=== PATIENT | female | born 1980 | race Two or more races ===

== ENCOUNTER 2020-02-13 07:38 | Inpatient (IN) | payer MEDICAID ==
[~2020-02-13] VITALS: Ht 162.6 cm; Wt 108.9 kg
--- NOTE | 2020-02-13 07:55 | NUR ---
ED Nurse Note: Pt walked in from home c/o RLQ pain with n/v x 2 weeks. Per pt, she had appendectomy 2 weeks ago. Respirations even and unlabored on room air. Vitals stable as documented. .
[2020-02-13] MEDS ORDERED: Omnipaque-300 100ml vial INJ PRN (08:00)
[2020-02-13 08:10] VITALS: BP 112/78
[2020-02-13] MEDS ORDERED: Morphine Sulfate 4mg/ml Inj (IV USE ONLY) IVP ONE ×2 (08:15→11:15)
--- NOTE | 2020-02-13 08:37 | NUR ---
ED Nurse Note: Cannot get IV access and blood draw. ED MD aware and said okay to insert on foot/leg if necessary.
[2020-02-13 08:51] LABS: APPEARANCE,URINE CLEAR; BILIRUBIN, URINE NEGATIVE (NEGATIVE); GLUCOSE, URINE (UA) NEGATIVE (NEGATIVE); KETONES,URINE 1+ (NEGATIVE); LEUKOCYTE ESTERASE ,URINE NEGATIVE (NEGATIVE); NITRITE,URINE NEGATIVE (NEGATIVE); PH,URINE 5 (4.5-8.0); PROTEIN,URINE 1+ (NEGATIVE); UROBILINOGEN,URINE NORMAL MG/DL (0.0-1.0)
[2020-02-13 08:54] LABS: COLOR,URINE YELLOW
--- NOTE | 2020-02-13 08:58 | Emergency Room Report ---
History of Present Illness General Chief Complaint: Abdominal Pain Source: Patient Present Illness HPI This patient states that she underwent appendectomy 2 weeks ago. She states she was traveling to [place] at the time. She underwent a CT scan and was told she had a ruptured appendix. She did still go to the operating room and underwent appendectomy. She has been taking Zofran and Sinclair. She states that she has had ongoing severe pain in her right lower quadrant at the site of the surgery. She denies fever, although, she has had an episode of chills last night. She has had nausea and vomiting. She has pain localized to the right lower abdomen at the location of the surgical site. She has had no drainage or changes in her laparoscopy incision sites. She denies dysuria or hematuria. She has been having normal and soft bowel movements. She denies diarrhea. She denies headache or neck pain. She denies chest pain or shortness of breath. She states that 3 months ago she suffered a CVA. She states she is in full work -up for the etiology of this under the care of a neurologist. She has no other complaints. 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 COVID-19 Screening: Negative COVID-19 COVID-19 Testing Source: [place] Patient History Past Medical History: see triage record, CVA/TIA Past Surgical History: appy, jigna, other - Open lap for ovarian torsion as a child, Tubal ligation Social History: Denies: smoking, alcohol use, drug use Reviewed Nursing Documentation: PMH: Agreed; PSxH: Agreed Nursing Documentation-PMH Past Medical History: No History, Except For Hx Cerebrovascular Accident: Yes - left side Review of Systems All Other Systems: negative except mentioned in HPI Physical Exam Vital Signs Date Time Temp Pulse Resp B/P (MAP) Pulse Ox O2 Delivery O2 Flow Rate FiO2 02/13/20 07:47 98.4 97 20 108/76 (87) 97 02/13/20 08:10 Room Air Sp02 EP Interpretation: reviewed, normal General Appearance: no apparent distress, alert, GCS 15, non-toxic Head: normocephalic, atraumatic Eyes: bilateral eye normal inspection, bilateral eye PERRL ENT: hearing grossly normal, normal pharynx, no angioedema, normal voice Neck: full range of motion, supple/symm/no masses Respiratory: chest non-tender, lungs clear, normal breath sounds, no respiratory distress, no retraction, no accessory muscle use, speaking full sentences Cardiovascular #1: regular rate, rhythm, no edema Gastrointestinal: normal bowel sounds, soft, non-distended, no guarding, no rebound, tenderness - TTP in the the Abdomen diffusely, RLQ greatest tenderness. Surgical incision sites healing well (approximated, normal skin, no erythema or discharge). Rectal: deferred Musculoskeletal: back normal, normal range of motion, gait/station normal, non- tender Neurologic: alert, oriented x3, responsive, speech normal, other - Hx of CVA w / Facial droop, L. sided weakness (At baseline per patient) Psychiatric: judgement/insight normal, memory normal, mood/affect normal, no suicidal/homicidal ideation Skin: no rash, normal color Medical Decision Making Diagnostic Impression: Primary Impression: Uncontrolled pain Additional Impression: Post-operative pain ER Course This patient underwent CT of the abdomen and pelvis given that she is 2 weeks postoperative from a appendectomy. CT of the abdomen and pelvis showed no acute findings. She seems to have a very high tolerance for pain medication. She required escalating doses of morphine and continue to state her pain was uncontrolled. Laboratory work-up was benign. I was unable to safely control this patient's pain and discharge her home. I am unsure why she is requiring such high doses of pain medication. Possibly she does have narcotic tolerance. I did plan on obtaining a pelvic ultrasound, however, the patient declined the ultrasound saying that would only cause her more discomfort. Regardless, the patient is admitted for further evaluation by general surgery and for pain control as I have been unable to control her pain in the emergency department. Laboratory Tests Test 02/13/20 08:00 02/13/20 08:43 Urine Color Yellow Urine Appearance Clear Urine pH 5 (4.5-8.0) Urine Specific [place] 1.030 (1.005-1.035) Urine Protein 1+ (NEGATIVE) H Urine Glucose (UA) Negative (NEGATIVE) Urine Ketones 1+ (NEGATIVE) H Urine Blood Negative (NEGATIVE) Urine Nitrite Negative (NEGATIVE) Urine Bilirubin Negative (NEGATIVE) Urine Urobilinogen Normal MG/DL (0.0-1.0) Urine Leukocyte Esterase Negative (NEGATIVE) Urine RBC 0 /HPF (0 - 2) Urine WBC 0-2 /HPF (0 - 2) Urine Squamous Epithelial Cells Few /LPF (NONE/OCC) Urine Bacteria Occasional /HPF (NONE) Urine Mucus Moderate /LPF (NONE/OCC) H Urine HCG, Qualitative Negative (NEGATIVE) White Blood Count 11.9 K/UL (4.8-10.8) H Red Blood Count 4.49 M/UL (4.20-5.40) Hemoglobin 12.5 G/DL (12.0-16.0) Hematocrit 37.6 % (37.0-47.0) Mean Corpuscular Volume 84 FL (80-99) Mean Corpuscular Hemoglobin 27.9 PG (27.0-31.0) Mean Corpuscular Hemoglobin Concent 33.3 G/DL (32.0-36.0) Red Cell Distribution Width 12.9 % (11.6-14.8) Platelet Count 378 K/UL (150-450) Mean Platelet Volume 5.7 FL (6.5-10.1) L Neutrophils (%) (Auto) % (45.0-75.0) Lymphocytes (%) (Auto) % (20.0-45.0) Monocytes (%) (Auto) % (1.0-10.0) Eosinophils (%) (Auto) % (0.0-3.0) Basophils (%) (Auto) % (0.0-2.0) Differential Total Cells Counted 100 Neutrophils % (Manual) 59 % (45-75) Lymphocytes % (Manual) 33 % (20-45) Monocytes % (Manual) 8 % (1-10) Eosinophils % (Manual) 0 % (0-3) Basophils % (Manual) 0 % (0-2) Band Neutrophils 0 % (0-8) Platelet Estimate Adequate Platelet Morphology Normal Red Blood Cell Morphology Normal Sodium Level 140 MMOL/L (136-145) Potassium Level 3.8 MMOL/L (3.5-5.1) Chloride Level 104 MMOL/L (98-107) Carbon Dioxide Level 27 MMOL/L (21-32) Anion Gap 9 mmol/L (5-15) Blood Urea Nitrogen 11 mg/dL (7-18) Creatinine 0.9 MG/DL (0.55-1.30) Estimated Glomerular Filtration Rate > 60 mL/min (>60) Glucose Level 118 MG/DL (74-106) H Calcium Level 8.6 MG/DL (8.5-10.1) Total Bilirubin 0.3 MG/DL (0.2-1.0) Aspartate Amino Transferase (AST) 27 U/L (15-37) Alanine Aminotransferase (ALT) 52 U/L (12-78) Alkaline Phosphatase 100 U/L (46-116) Total Protein 7.3 G/DL (6.4-8.2) Albumin 3.5 G/DL (3.4-5.0) Globulin 3.8 g/dL Albumin/Globulin Ratio 0.9 (1.0-2.7) L CT/MRI/US Diagnostic Results CT/MRI/US Diagnostic Results : Imaging Test Ordered: CT abd/pelvis Impression Impression: Evidence of prior appendectomy. No CT evidence of complications related to such or findings to explain stated clinical history of severe right lower quadrant pain. Evidence of prior cholecystectomy Pneumobilia, presumably indicates prior sphincterotomy resulting in gas reflux into the biliary tree. Correlate with clinical history Small lobulated Cassity within the right lower quadrant subcutaneous fat, presumably some early scarring or small hematoma related to prior laparotomy incision Last Vital Signs Date Time Temp Pulse Resp B/P (MAP) Pulse Ox O2 Delivery O2 Flow Rate FiO2 02/13/20 08:10 89 20 02/13/20 08:10 98.4 112/78 98 Room Air Disposition: ADMITTED INPATIENT Condition: Stable Scripts No Active Prescriptions or Reported Meds Kristin Lockett DO Feb 13, 2020 08:58
--- NOTE | 2020-02-13 09:00 | NUR ---
ED Nurse Note: Left foot IV inserted. ED MD aware.
[2020-02-13 09:03] LABS: HEMATOCRIT 37.6 % (37.0-47.0); HEMOGLOBIN 12.5 G/DL (12.0-16.0); MEAN CORPUSCULAR VOLUME 84 FL (80-99); PLATELET COUNT 378 K/UL (150-450); RED BLOOD COUNT 4.49 M/UL (4.20-5.40); RED CELL DISTRIBUTION WIDTH 12.9 % (11.6-14.8); WHITE BLOOD COUNT 11.9 K/UL (4.8-10.8)
--- NOTE | 2020-02-13 09:06 | NUR ---
ED Nurse Note: Pt given oral contrast and has begun drinking it.
[2020-02-13 09:08] LABS: ANION GAP 9 mmol/L (5-15); BLOOD UREA NITROGEN 11 mg/dL (7-18); CALCIUM 8.6 MG/DL (8.5-10.1); CARBON DIOXIDE 27 MMOL/L (21-32); CHLORIDE 104 MMOL/L (98-107); CREATININE 0.9 MG/DL (0.55-1.30); POTASSIUM 3.8 MMOL/L (3.5-5.1); SODIUM 140 MMOL/L (136-145)
[2020-02-13 09:13] LABS: ALANINE AMINOTRANSFERASE 52 U/L (12-78); ALBUMIN 3.5 G/DL (3.4-5.0); ALBUMIN/GLOBULIN RATIO 0.9 (1.0-2.7); ALKALINE PHOSPHATASE 100 U/L (46-116); ASPARTATE AMINO TRANSFERASE 27 U/L (15-37); BILIRUBIN,TOTAL 0.3 MG/DL (0.2-1.0)
[2020-02-13 09:48] VITALS: BP 119/82
--- NOTE | 2020-02-13 10:29 | NUR ---
ED Nurse Note: Pt in radiology
--- NOTE | 2020-02-13 10:50 | NUR ---
ED Nurse Note: pt back from radiology
--- NOTE | 2020-02-13 11:22 | Diagnostic Imaging Report ---
Indication: Abdominal pain. History of appendectomy 2 weeks ago. Ongoing severe right lower quadrant pain since Technique: Spiral acquisitions obtained through the abdomen and pelvis. Patient given oral contrast. No IV contrast utilized, per referring physician request.. Multiplanar reconstructions were generated. Total dose length product 1210 mGycm. CTDIvol(s) 21 mGy. Dose reduction achieved using automated exposure control Comparison: None Findings: The small bowel is well opacified. Ingested contrast reaches the distal ileum, does not quite traverse the terminal ileum. The appendix is not visualized and surgical chely are seen surrounding the cecum. Essentially no inflammatory change is seen in pericecal region. No extraluminal gas or fluid collections. A lobulated opacity in the right lower quadrant subcutaneous fat probably represents some early scarring immediately deep to the incision. Prominent nodes are seen in the right lower quadrant mesenteric fat. There are questionable small colonic diverticula. No evidence of diverticulitis. No small bowel distention or small bowel wall thickening. Distal esophagus, stomach, duodenum are unremarkable. No free or loculated intraperitoneal gas or fluid is evident. Lack of IV contrast limits assessment of the solid organs. The gallbladder has been removed. A small amount of gas is seen within the common hepatic duct and central left intrahepatic ducts. The liver is unremarkable otherwise. The pancreas, spleen, adrenals, kidneys are unremarkable. No retroperitoneal or mesenteric mass or adenopathy. No pelvic mass or adenopathy. Uterus and ovaries are unremarkable. The included lung bases are clear. The bones are unremarkable. Impression: Evidence of prior appendectomy. No CT evidence of complications related to such or findings to explain stated clinical history of severe right lower quadrant pain. Evidence of prior cholecystectomy Pneumobilia, presumably indicates prior sphincterotomy resulting in gas reflux into the biliary tree. Correlate with clinical history Small lobulated Cassity within the right lower quadrant subcutaneous fat, presumably some early scarring or small hematoma related to prior laparotomy incision The CT scanner at [facility] is accredited by the [employer] and the scans are performed using protocols designed to limit radiation exposure to as low as reasonably achievable to attain images of sufficient resolution adequate for diagnostic evaluation.
[2020-02-13 11:40] VITALS: BP 123/85
[2020-02-13] MEDS ORDERED: Morphine Sulfate 10mg/ml Inj IVP ONE (12:15)
[2020-02-13 13:30] VITALS: BP 117/81
--- NOTE | 2020-02-13 15:13 | NUR ---
ED Nurse Note: Report given to NESTOR Campos on 4 E.
--- NOTE | 2020-02-13 15:15 | NUR ---
NURSE NOTES: received report from ER. Caroline RN. patient will be admitted to room 416-[address] Jaime amezcua.
--- NOTE | 2020-02-13 15:40 | NUR ---
ED Nurse Note: Pt transferred safely to 4E.
--- NOTE | 2020-02-13 15:50 | NUR ---
NURSE NOTES: patient was admitted to room 402-2 under care dx of abd pain, n/v. A&Ox4, verbally responsive. no respiratory distress noted on room air. pain on abd area. she felt itchy after got morphine at ER. IV on Left foot 24g intact. checked and counted belongings with patient. ambulatory. notified Dr. Mitchell for admission orderes. MD is aware. will continue to provide plan of care.
--- NOTE | 2020-02-13 17:05 | NUR ---
NURSE NOTES: received order from Dr. roman. No ATB med for discharge. removed Picc line upon discharge. order noted and carried out.
[2020-02-13] MEDS ORDERED: D5 1/2NS 1,000 ML IV SCH (17:09)
[2020-02-13] MEDS ORDERED: Miralax 17gm pkt ORAL PRN (17:15)
[2020-02-13] MEDS ORDERED: Metoclopramide 10mg/2ml Inj IVP PRN (17:15)
[2020-02-13] MEDS ORDERED: Nitroglycerin Subl 0.4mg tab SL PRN (17:15)
[2020-02-13] MEDS ORDERED: DiphenhydrAMINE 25mg Tab ORAL PRN (17:15)
[2020-02-13] MEDS ORDERED: DiphenhydrAMINE 50mg/ml Inj IVP SCH (18:45)
--- NOTE | 2020-02-13 18:46 | NUR ---
NURSE NOTES: received call from CHASITY Larkin. covering DR. Sandoval. she will come to see the patient for evaluation in 10 min. received order Dilaudid 2mg IVP once stat for the pain. Benadryl 50mg IVP once Stat for itchiness. order noted and carried out.
--- NOTE | 2020-02-13 19:10 | NUR ---
NURSE NOTES: Received report from NESTOR Campos, The patient is alert and oriented x4 and was cooperative with her care. She has an IV line in the Left foot 24g that is presently running IV fluids D5 0.45 NS. She was noted to have slurred speech related to her history of CVA with left sided deficits noted. The was no complain of pain . will continue to monitor.
[2020-02-13 20:00] VITALS: BP 157/83
[2020-02-13] MEDS ORDERED: Heparin 5000 units/ml inj SUBQ SCH (21:00)
--- NOTE | 2020-02-13 21:10 | NUR ---
The patient called in and said her daughter had an Emergency that she need to leave the hospital immediately. The patient was educated on the risks for leaving without completing her treatment x3 but she persisted. Dr. Sandoval was informed and the patient was able to sign the AMA for herself.
--- NOTE | 2020-02-13 21:12 | NUR ---
The patient left the hospital is alert and oriented x4, the resp is even and unlabored and the IV lines on the left food was discontinued.
[2020-02-14] MEDS ORDERED: Pantoprazole Inj IV SCH (09:00)
--- NOTE | 2020-02-17 11:04 | Discharge Summary ---
Discharge Summary Discharge Summary _ DATE OF ADMISSION: 02/13/2020 DATE OF DISCHARGE: 02/13/2020 Patient left AGAINST MEDICAL ADVICE REASON FOR ADMISSION: 39 years old female, who underwent appendectomy 2 weeks ago, presented for abdominal pain. Apparently at that time prior to surgery, she she was traveling to [place] and developed abdominal pain. CT scan revealed a ruptured appendix. Patient undergone urgent appendectomy . Patient completed antibiotic . Patient was taking analgesic and antiemetic at home. Patient reported ongoing severe pain in the right lower quadrant at the site of the surgery. She denied fever , but reported episode of chills last night. She still had nausea and vomiting. Pain was localized at the right lower abdominal quadrant at the location of the surgical site , no radiation. No drainage. No change in laparoscopic incision sites. No chest pain or shortness of breath. No dysuria or hematuria. Normal bowel movement. No diarrhea. No headache or neck pain. Patient reported that 3 months ago she suffered a CVA. She had a full work-up and currently under care of neurologist. Upon evaluation vital signs were stable. Laboratory work-up revealed mild leukocytosis WBC 11.9, stable hemoglobin , hematocrit and platelet count. Stable electrolytes and renal parameters. Urinalysis revealed +1 protein , +1 ketones , no evidence of UTI. Urine test was negative. CT of the abdomen and pelvis demonstrated evidence of prior appendectomy. No CT evidence of complication related to such findings to explain history of severe right lower quadrant pain. Evidence of prior cholecystectomy. In emergency department patient started on the IV fluids, received analgesic, antiemetic and admitted to medical surgical floor for further management. HOSPITAL COURSE: Patient admitted to medical surgical floor. Patient was on IV fluids. Pain management was addressed. Antiemetic were on board as needed. Bowel regimen instituted. DVT and GI prophylaxis provided. Patient decided to leave AGAINST MEDICAL ADVICE According to patient, her daughter had an emergency, and she needed to leave the hospital immediately. The risks and consequences of signing AGAINST MEDICAL ADVICE were discussed with patient in detail. Patient verbalized understanding, nevertheless signed AMA form and left. FINAL DIAGNOSES: Right lower quadrant abdominal pain Status post recent appendectomy secondary to ruptured appendix I have been assigned to dictate discharge summary for this account. I was not involved in the patient's management. Fely Eli NP Feb 17, 2020 11:04
== END 2020-02-13 21:05 | disposition left against medical advice (07) | DRG 861 ==
LOC: EMR 07:55 → 4E 14:04 → EDBEDREQ 14:43 → 4E 15:46
DX: G89.18 Other acute postprocedural pain (principal); R10.31 Right lower quadrant pain; Z88.6 Allergy status to analgesic agent; Z88.8 Allergy status to other drugs, medicaments and biological substances; Z86.73 Personal history of transient ischemic attack (TIA), and cerebral infarction without residual deficits
CPT/HCPCS: 36415; 74176; 80053; 81003; 81025; 85007; 85025; 96361; 96374; 96375; 96376; 99285; J2405; J7030